=== PATIENT | male | born 1985 | race Hispanic/Latino ===

== ENCOUNTER 2019-05-02 03:21 | Emergency (ER) | payer SELFPAY ==
[~2019-05-02] VITALS: Ht 170.2 cm; Wt 83.9 kg
[2019-05-02] MEDS ORDERED: KETOROLAC TROMETHAMINE 60 MG/2 ML VIAL IM ONE (03:45)
[2019-05-02] MEDS ORDERED: TETANUS/DIPHTHERIA TOX ADULT 0.5 ML SYR IM ONE (03:45)
[2019-05-02] MEDS ORDERED: KETOROLAC TROMETHAMINE 60 MG/2 ML VIAL ONE (03:54)
[2019-05-02] MEDS ORDERED: TETANUS/DIPHTHERIA TOX ADULT 0.5 ML SYR ONE (03:54)
--- NOTE | 2019-05-02 05:05 | Diagnostic Imaging Report ---
Exam: Right foot 3 views History: Pain Comparison: None. Findings: No fracture or malalignment. Joint spaces preserved. No abnormal soft tissue calcification or soft tissue defect. Impression: No acute osseous abnormality or retained radiopaque body Signed by: Dr. Amor Storey M.D. on 05/02/2019 5:01 AM
== END 2019-05-02 04:23 | disposition home or self-care (01) ==
LOC: FSED 03:21
DX: S91.311A Laceration without foreign body, right foot, initial encounter (principal); L03.115 Cellulitis of right lower limb; W45.8XXA Other foreign body or object entering through skin, initial encounter; Y92.008 Other place in unspecified non-institutional (private) residence as the place of occurrence of the external cause
CPT/HCPCS: 73630; 90471; 90714; 99283; J1885

== ENCOUNTER 2022-01-27 14:28 | Emergency (ER) | payer SELFPAY ==
[~2022-01-27] VITALS: Ht 167.6 cm; Wt 81.6 kg
[2022-01-27] MEDS ORDERED: ACETAMINOPHEN500 MG PO (14:43)
[2022-01-27] MEDS ORDERED: IBUPROFEN IB200 MG PO (14:43)
== END 2022-01-27 14:49 | disposition home or self-care (01) ==
LOC: FSED 14:40
DX: M54.42 Lumbago with sciatica, left side (principal)
CPT/HCPCS: 99282

== ENCOUNTER 2022-08-18 17:32 | Emergency (ER) | payer OTHER ==
[~2022-08-18] VITALS: Ht 170.2 cm; Wt 96.8 kg
[~2022-08-18 17:32] MED LIST: ACETAMINOPHEN500 MG PO; IBUPROFEN IB200 MG PO
[2022-08-18] MEDS ORDERED: ACETAMINOPHEN500 MG PO (18:35)
[2022-08-18] MEDS ORDERED: IBUPROFEN200 MG PO (18:35)
== END 2022-08-18 18:42 | disposition home or self-care (01) ==
LOC: FSED 18:08
DX: S20.211A Contusion of right front wall of thorax, initial encounter (principal); V57.5XXA Driver of pick-up truck or van injured in collision with fixed or stationary object in traffic accident, initial encounter; Y92.89 Other specified places as the place of occurrence of the external cause; F17.210 Nicotine dependence, cigarettes, uncomplicated
CPT/HCPCS: 99283